=== PATIENT | female | born 1965 | race Caucasian/White ===

== ENCOUNTER → 2020-06-03 12:12 | Outpatient (BNVA) | payer MEDICAID, SELFPAY | PROVIDERS: Family Provider Nurse Practitioner Family; Visit Provider Nurse Practitioner Family | DX: D64.9 Anemia, unspecified (principal); R53.83 Other fatigue; E55.9 Vitamin D deficiency, unspecified; Z79.899 Other long term (current) drug therapy; Z13.6 Encounter for screening for cardiovascular disorders | CPT/HCPCS: 80053; 80061; 81003; 82306; 82607; 83036; 83540; 84425; 84439; 84443; 84481; 85025 ==

== ENCOUNTER → 2020-06-23 08:36 | Outpatient (BNVA) | payer MEDICAID, SELFPAY | PROVIDERS: Family Provider Nurse Practitioner Family; Visit Provider Nurse Practitioner Family | DX: D64.9 Anemia, unspecified (principal); R53.83 Other fatigue; E55.9 Vitamin D deficiency, unspecified; Z79.899 Other long term (current) drug therapy; Z13.6 Encounter for screening for cardiovascular disorders | CPT/HCPCS: 80053; 80061; 82306; 82607; 83036; 83540; 84439; 84443; 84481; 85025 ==

== ENCOUNTER → 2020-12-09 14:13 | Outpatient (BNVA) | payer BC, MEDICAID, SELFPAY | PROVIDERS: Family Provider Nurse Practitioner Family; Visit Provider Obstetrics & Gynecology | DX: Z78.0 Asymptomatic menopausal state (principal) | CPT/HCPCS: 82670; 83001 ==

== ENCOUNTER → 2021-01-06 13:06 | Outpatient (BNVA) | payer BC, MEDICAID, SELFPAY | PROVIDERS: Family Provider Nurse Practitioner Family; Referring Provider Nurse Practitioner Family; Visit Provider Specialist | DX: G56.01 Carpal tunnel syndrome, right upper limb (principal) | CPT/HCPCS: 73110 ==

== ENCOUNTER → 2021-05-05 07:48 | Outpatient (BNVA) | payer BC, MEDICAID, SELFPAY | PROVIDERS: Family Provider Nurse Practitioner Family; Referring Provider Specialist; Visit Provider Specialist | DX: G56.03 Carpal tunnel syndrome, bilateral upper limbs (principal) | CPT/HCPCS: 95886; 95910 ==

== ENCOUNTER 2021-11-20 20:13 | Emergency (ER) | payer BC, MEDICAID, SELFPAY ==
[2021-11-20 20:35] VITALS: BP 161/98; PULSE 84; RESP 16; TEMP 36.6; O2SAT 98; BMI 27.3
--- NOTE | 2021-11-20 21:48 | W.ED.DIZZY ---
HPI - Dizziness General: Chief Complaint: Dizziness Stated Complaint: Vertigo Time Seen by Provider: 11/20/21 21:48 History of Present Illness: HPI Narrative: 56-year-old lady without significant past medical history presenting to the emergency department due to dizziness associated with nausea and vomiting. She reports being at her baseline health when she was sitting on a swing outside. She turned her head to the side and had sudden onset of dizziness which she describes as spinning and unsteady feeling associated with profound nausea and vomiting. Symptoms that were so severe and have mildly improved. She notes worse symptoms with any movement and keeping her eyes open. She has had 1 similar much more mild episode in the past approximately 1 year ago. Otherwise denies neurologic symptoms. No other specific changes in health, exacerbating, or alleviating factors identified. Onset (ago): minute(s) Timing: sudden onset Severity: severe Description: sense of movement, room spinning and difficulty walking Context: change in body position History of similar symptoms: Yes Exacerbating factors: movement/ambulation, change in body position and keeping eyes open Relieving factors: nothing Associated symptoms: Reports nausea and vomiting Review of Systems General: Reports: 10 or more systems reviewed and unremarkable except in HPI and below GI: Reports: nausea and vomiting PFSH ED PFSH: Medical History No pertinent past medical history Denies diabetes, asthma, seizures, DVT/PE PCP: SIVA Ocampo Surgical History Status post LEEP (loop electrosurgical excision procedure) of cervix 2000---LEEP/cone for abnormal Pap smear Status post tubal ligation 1997---laparoscopic tubal ligation performed. Family History Father Diabetes Hypertension Stroke Sister Diabetes Grandmother Diabetes paternal Colon cancer paternal, diagnosed in her 70s Family/Other Breast cancer maternal aunt, diagnosed after age 50 maternal cousin, age at diagnosis unknown Mother Hypertension Hyperlipidemia Thyroid condition Denies family history of Ovarian cancer Heart disease Uterine cancer Social History Smoking and tobacco status: former smoker Physical Exam Const: COMMON NORMALS: patient oriented x3 and alert GENERAL APPEARANCE: cooperative and well developed HENMT: COMMON NORMALS: normocephalic and atraumatic HEAD & SCALP: normocephalic and atraumatic THROAT: posterior oropharynx normal Eye: COMMON NORMALS: Equal, round and reactive pupils present, EOMs intact bilaterally and conjunctivae normal CONJUNCTIVA: Yes conjunctivae normal SCLERA: sclerae normal PUPIL: Yes Equal, round and reactive pupils present EOM: Yes Nystagmus present Nystagmus Noted: positive horizontal and positive with right lateral gaze Neck/C-Spine: COMMON NORMALS: supple GENERAL: Yes trachea midline Resp: COMMON NORMALS: normal respiratory effort and clear to auscultation bilaterally EFFORT & INSPECTION: Yes able to speak in complete sentences AUSCULTATION: clear to auscultation bilaterally Cardio: COMMON NORMALS: regular rate and regular rhythm RATE: regular rate RHYTHM: regular rhythm GI: COMMON NORMALS: Soft to palpation PALPATION: Yes Soft to palpation and No Tenderness to palpation present (GI) PERCUSSION: normal to percussion Extremity: GENERAL: Yes normal exam except as noted and No edema Neuro: COMMON NORMALS: patient oriented x3, CN's II-XII intact bilaterally (see eye), moves all extremities, no focal motor deficits and no sensory deficits noted SENSORIUM/ORIENTATION: Yes alert and No Orientation impaired Psych: COMMON NORMALS: mental status grossly normal and Normal thought process present THOUGHT PROCESS: Normal thought process present Course ED course: - Patient was seen and evaluated by me at bedside - Patient placed on cardiac monitors, IV access obtained - Initial evaluation notable for exam as above - Labs and xrays personally interpreted by me -Fluids, antiemetic, meclizine given - Labs notable for no significant abnormality identified on hematologic or metabolic panel to explain symptoms. - Performed Juliann maneuver with some relief of patient's symptoms which in combination with meclizine significantly improved - Upon serial reexamination after treatment the patient was significantly improved - Based on patient history, evaluation, and testing as interpreted the most likely cause of the patient's condition is peripheral cause of dizziness. I did discuss other potential causes including stroke/central cause of dizziness and offered CT imaging which, given patient's improvement, patient felt comfortable foregoing. - The results of ED evaluation were discussed with the patient including prescriptions and/or symptomatic cares (if applicable) including appropriate and responsible use, followup plan, and return precautions. The patient verbalized understanding and felt safe for discharge. - Patient discharged in satisfactory condition. Note: Click bubbles or prepopulated nugent in note writing are used for assistance with data collection and billing and are inherently more limited than narrative and other text portions of this note. Please use narrative for additional clinical history and defer to narrative/free test for any case of contradictory information. If information appears in only free text or click bubble it should be considered present or absent as reported. Please contact note sheet writer for clarifications of clinical information or contradictory information. MDM is a brief summary, contradictory or erroneous seeming information should be clarified and full note should be reviewed. Vital Signs: Vital signs: Vital Signs Temperature 98.4 F 11/20/21 23:55 Pulse Rate 77 11/20/21 23:55 Respiratory Rate 16 11/20/21 23:55 Blood Pressure 154/102 11/20/21 23:55 Pulse Oximetry 99 11/20/21 23:55 MDM - Dizziness Medical Decision Making 56-year-old lady with history of one-time BPPV presenting with sudden onset dizziness associated with nausea and vomiting associated with head turning. No neurologic abnormalities identified on exam except for nystagmus on far right lateral gaze. Symptoms improved with Juliann and meclizine. Offered imaging which the patient declined. Satisfactory for outpatient management with strict return precautions. Medical Records I reviewed the patient's medical records. Lab Data I reviewed the patient's lab results. : 11/20/21 22:30 11/20/21: Laboratory Results WBC 10.0 10^3/uL (4.0-10.0) 11/20/21: RBC 4.78 10^6/uL (4.1-5.3) 11/20/21 22: Hgb 15.2 g/dL (11.5-15.3) 11/20/21 22: Hct 42.5 % (37.0-47.0) 11/20/21: MCV 88.9 fl (81-99) 11/20/21: MCH 31.8 pg (28.0-34.0) 11/20/21: MCHC 35.8 g/dL (30.0-36.0) 11/20/21: RDW 12.1 % (12.1-15.1) 11/20/21: Plt Count 273 10^3/cmm (130-400) 11/20/21 22:30 MPV 10.7 fL (7.4-10.4) H 11/20/21 22: Neut % (Auto) 83.7 % 11/20/21 22: Lymph % (Auto) 11.2 % 11/20/21: Hand % (Auto) 4.0 % 11/20/21: Eos % (Auto) 0.4 % 11/20/21: Baso % (Auto) 0.3 % 11/20/21: Neut # (Auto) 8.38 10^3/uL (1.8-7.7) H 11/20/21: Lymph # (Auto) 1.1 10^3/uL (0.8-4.8) 11/20/21: Hand # (Auto) 0.4 10^3/uL (0.2-0.9) 11/20/21: Eos # (Auto) 0.0 10^3/uL (0.0-0.8) 11/20/21: Baso # (Auto) 0.0 10^3/uL (0.0-0.1) 11/20/21: Nucleated RBC % (auto) 0 % 11/20/21: Nucleated RBCs # 0.0 /100WBC 11/20/21: Sodium 140 mmol/L (136-145) 11/20/21: Potassium 3.9 mmol/L (3.5-5.1) 11/20/21: Chloride 105 mmol/L (98-107) 11/20/21: Carbon Dioxide 24 mmol/L (22-29) 11/20/21: Anion Gap 14.9 (5-19) 11/20/21: BUN 15 mg/dL (6-20) 11/20/21: Creatinine 0.7 mg/dL (0.5-0.9) 11/20/21 22:30 GFR Calculation 86.2 mL/min (90-130) L 11/20/21: Glucose 124 mg/dL (65-115) H 06/04/22 22:30 Calculated Osmolality 292 mOsm/kg (285-295) 11/20/21 22:30 Calcium 9.4 mg/dL (8.5-10.5) 11/20/21 22:30 Total Bilirubin 0.6 mg/dL (0.15-1.2) 11/20/21 22:30 AST 24 U/L (0-32) 11/20/21 22:30 ALT 31 U/L (0-33) 11/20/21 22:30 Alkaline Phosphatase 68 IU/L (35-105) 11/20/21 22:30 Total Protein 8.0 g/dL (6.6-8.7) 11/20/21 22:30 Albumin 4.8 g/dL (3.5-5.2) 11/20/21: Globulin 3.2 g/dL (1.3-4.6) 11/20/21 22:30 Discharge Plan Discharge Patient Disposition: Home Clinical Impression: Dizziness Condition: Stable Prescriptions: New meclizine 25 mg tablet 25 mg PO TID PRN (Reason: dizziness) Qty: 10 0RF ondansetron 4 mg tablet,disintegrating 4 mg PO Q8H PRN (Reason: nausea and vomiting) Qty: 15 0RF Discharge Orders: Discharge ED (Routine); Ordered 11/20/21 Ordered By: Edvin Santana Discharge Diet: Usual diet Discharge Activity: Increase activity as tolerated Patient Instructions: Benign Paroxysmal Positional Vertigo (ED), Dizziness (ED) Activity Restrictions/Additional Instructions: Thank you for visiting the emergency department. You were seen and evaluated for dizziness. The exact cause of your symptoms is unclear though based on discussion most likely peripheral in nature related to vertigo. I will place a referral for outpatient vestibular therapy, additionally please follow-up with your primary care provider. Please return to the emergency department for any new neurologic symptoms or anything else that you are concerned about and feel needs emergency department evaluation. Coding Level of Care Code ED Insurance Application Investigator for Wesley Puckett
[2021-11-20] MEDS: sodium chloride 0.9% 1,000 ML 999 ML IV (22:32)
[2021-11-20] MEDS: meclizine 25 mg tablet PO ×2 (22:34→23:54)
[2021-11-20] MEDS: ondansetron 2 mg/ML SDV 2 mL 4 MG IVP (22:34)
[2021-11-20 22:45] LABS: Basophils % 0.3 %; Eosinophils % 0.4 %; Hematocrit 42.5 % (37.0-47.0); Hemoglobin 15.2 g/dL (11.5-15.3); Lymphocytes # 1.1 10^3/uL (0.8-4.8); Lymphocytes % 11.2 %; Mean Corpuscular HGB Conc 35.8 g/dL (30.0-36.0); Mean Corpuscular Hemoglobin 31.8 pg (28.0-34.0); Mean Corpuscular Volume 88.9 fl (81-99); Mean Platelet Volume 10.7 fL (7.4-10.4); Monocytes # 0.4 10^3/uL (0.2-0.9); Neutrophils # 8.38 10^3/uL (1.8-7.7); Neutrophils % 83.7 %; Nucleated Red Blood Cells % 0 %; Platelet Count 273 10^3/cmm (130-400); Red Blood Count 4.78 10^6/uL (4.1-5.3); Red Cell Distribution Width 12.1 % (12.1-15.1)
[2021-11-20 23:01] LABS: Alanine Aminotransferase 31 U/L (0-33); Albumin Level 4.8 g/dL (3.5-5.2); Alkaline Phosphatase 68 IU/L (35-105); Anion Gap 14.9 (5-19); Aspartate Amino Transferase 24 U/L (0-32); Blood Urea Nitrogen 15 mg/dL (6-20); Calcium 9.4 mg/dL (8.5-10.5); Carbon Dioxide 24 mmol/L (22-29); Chloride 105 mmol/L (98-107); Globulin 3.2 g/dL (1.3-4.6); Glomerular Filtration Rate 86.2 mL/min (90-130); Glucose 124 mg/dL (65-115); Osmolality Calculated 292 mOsm/kg (285-295); Potassium 3.9 mmol/L (3.5-5.1); Sodium 140 mmol/L (136-145); Total Bilirubin 0.6 mg/dL (0.15-1.2)
[2021-11-20 23:55] VITALS: BP 154/102; PULSE 77; RESP 16; TEMP 36.9; O2SAT 99
--- NOTE | 2021-11-22 14:56 | DCPLANNER ---
Addendum entered by Kyleigh Antoine 11/24/21 08:54: marketing content manager spoke with Kerry at outpatient therapy to confirm that clinic received order for therapy services. marketing content manager was told that clinic did receive order and that clinic will call patient with appointment information. Original Note: marketing content manager had message to schedule a follow up appointment for patient with outpatient therapy. marketing content manager faxed signed order to outpatient therapy services, who will call patient with appointment information.
== END 2021-11-20 23:59 | disposition home or self-care (01) ==
PROVIDERS: Emergency Provider Emergency Medicine
DX: H81.10 Benign paroxysmal vertigo, unspecified ear (principal)
CPT/HCPCS: 80053; 85025; 96361; 96374; 99284; J2405; J7030; J8597

== ENCOUNTER 2021-12-17 | Outpatient (RCR) | payer BC, MEDICAID, SELFPAY | END 2022-01-16 23:59 | disposition home or self-care (01) | LOC: WPT | PROVIDERS: Absent Provider Nurse Practitioner; Family Provider Nurse Practitioner; PCP Nurse Practitioner; Referring Provider Nurse Practitioner; Visit Provider Nurse Practitioner | DX: R42 Dizziness and giddiness (principal) | CPT/HCPCS: 97110; 97140; 97161 ==

== ENCOUNTER → 2022-01-24 13:43 | Outpatient (BNVA) | payer BC, MEDICAID, SELFPAY | PROVIDERS: Family Provider Nurse Practitioner; PCP Nurse Practitioner; Visit Provider Obstetrics & Gynecology | DX: Z12.4 Encounter for screening for malignant neoplasm of cervix (principal) | CPT/HCPCS: 87624 ==

== ENCOUNTER → 2022-05-09 14:42 | Outpatient (BNVA) | payer BC, MEDICAID, SELFPAY | PROVIDERS: Family Provider Nurse Practitioner; PCP Nurse Practitioner; Visit Provider Obstetrics & Gynecology | DX: N84.1 Polyp of cervix uteri (principal) | CPT/HCPCS: 88305; 88342 ==

== ENCOUNTER → 2022-05-19 14:39 | Outpatient (BNVA) | payer BC, MEDICAID, SELFPAY | PROVIDERS: Family Provider Nurse Practitioner; PCP Nurse Practitioner; Visit Provider Obstetrics & Gynecology | DX: R10.2 Pelvic and perineal pain (principal) | CPT/HCPCS: 76830 ==

== ENCOUNTER → 2022-08-11 11:34 | Outpatient (BNVA) | payer BC, MEDICAID, SELFPAY | PROVIDERS: Family Provider Nurse Practitioner; PCP Nurse Practitioner; Visit Provider Nurse Practitioner Family | DX: R10.9 Unspecified abdominal pain (principal); N89.8 Other specified noninflammatory disorders of vagina | CPT/HCPCS: 80053; 85025; 87070; 87205 ==

== ENCOUNTER 2022-09-06 07:33 | Outpatient (CLI) | payer BC, MEDICAID, SELFPAY ==
--- NOTE | 2022-09-06 08:00 | US_ITS ---
WS: [id number] ULTRASOUND ABDOMEN CLINICAL INFORMATION: R10.9 - Unspecified abdominal pain COMPARISON: None. FINDINGS: Liver Size: Normal. Craniocaudal length: 15.1 cm. Echogenicity: Coarse Surface nodularity: None. Mass (size and location): None. Bile ducts Intrahepatic ducts: Normal. Common bile duct diameter: 0.4 cm. Gallbladder Normal. Gallstones: None. Gallbladder sludge: None. Gallbladder wall thickening: None. Pericholecystic fluid: None. Sonographic Baez sign: Absent. Pancreas Normal as visualized. Spleen Splenomegaly: None. Craniocaudal length: 11.5 cm. Right kidney: Mild RIGHT hydronephrosis Hydronephrosis: Mild Size: 10.3 cm x 5.4 cm x 4.8 cm Left kidney: Normal. Hydronephrosis: None. Size: 10.5 cm x 4.3 cm x 5.1 cm. Abdominal aorta and IVC Visualized portions are normal. Ascites: None. US/US abdomen complete* [id number] IMPRESSION: 1. Diffuse fatty infiltration liver. 2. Normal gallbladder. Normal common bile duct. 3. Mild RIGHT hydronephrosis with mild RIGHT hydroureter. This can be further evaluated with renal stone protocol CT to exclude obstruction. 4. No hydronephrosis in the LEFT kidney.
== END 2022-09-06 07:34 | disposition home or self-care (01) ==
LOC: RAD 07:36
PROVIDERS: PCP Nurse Practitioner; Visit Provider Nurse Practitioner Family
DX: R10.9 Unspecified abdominal pain (principal); K76.0 Fatty (change of) liver, not elsewhere classified; N13.30 Unspecified hydronephrosis
CPT/HCPCS: 76700

== ENCOUNTER 2022-09-06 09:00 | Outpatient (CLI) | payer BC, MEDICAID, SELFPAY | END 2022-09-06 09:01 | disposition home or self-care (01) | LOC: SLEEP 09-07 17:06 | PROVIDERS: PCP Nurse Practitioner; Visit Provider Nurse Practitioner Family | DX: G47.30 Sleep apnea, unspecified (principal) | CPT/HCPCS: 94762 ==

== ENCOUNTER 2022-09-30 10:12 | Outpatient (CLI) | payer BC, MEDICAID, SELFPAY ==
--- NOTE | 2022-09-30 10:30 | CT_ITS ---
WS: [id number] CT ABDOMEN AND PELVIS NONCONTRAST HISTORY: R10.9 - Unspecified abdominal pain, upper abdominal pain radiating into back. TECHNIQUE: Imaging performed through the abdomen and pelvis. Coronal and sagittal reformats are submi tted. All CT scans at [facility] use at least one of these dose optimization techniques: auto mated exposure control; mA and/or kV adjustment per patient size (includes targeted exams where dose is matched to clinical indication); or iterative reconstruction. DLP: 335.53 mGy.cm COMPARISON: None available. Lower thorax: Lung bases are clear. Visualized heart is normal. No hiatal hernia. Liver: Mild hepatomegaly and hepatic steatosis. No bile duct dilatation or mass. Gallbladder: Normal gallbladder. Pancreas: Normal size and attenuation. Normal pancreatic duct. No pancreatitis or mass. Spleen: Normal. Adrenal glands: Normal. No mass. Right kidney: Minimal prominence of the renal pelvis is probably an extrarenal pelvis. No hydronephro sis. Left kidney: Normal size kidney with no mass or hydronephrosis. Aorta: Mild atherosclerosis abdominal aorta with no aneurysm. No free fluid, intraperitoneal air or significant lymphadenopathy. GI tract: Normal noncontrast imaging of the stomach, small bowel and colon. No obstruction or wall th ickening. Normal appendix. Abdominal wall: Small umbilical hernia contains fat only. Pelvis: Well-distended urinary bladder. There is significant known uterine prolapse. Osseous structures: Unremarkable. CT/CT abdomen pelvis wo con [id number] IMPRESSION: 1. No acute abdominal or pelvic abnormalities. 2. Hepatic steatosis and hepatomegaly, mild. 3. No hydronephrosis. Small RIGHT extrarenal pelvis. 4. Known uterine prolapse.
== END 2022-09-30 10:13 | disposition home or self-care (01) ==
LOC: RAD 10:16
PROVIDERS: PCP Nurse Practitioner Family; Visit Provider Nurse Practitioner Family
DX: R10.9 Unspecified abdominal pain (principal); R16.0 Hepatomegaly, not elsewhere classified
CPT/HCPCS: 74176

== ENCOUNTER 2022-11-10 12:07 | Observation (INO) | payer BC, MEDICAID, SELFPAY ==
[2022-11-08 11:58] VITALS: BMI 28.3
[2022-11-08 13:09] LABS: Add Urine Microscopic? NO; Charge for UA Resulting for Rev
[2022-11-08 13:13] LABS: Basophils % 0.5 %; Eosinophils # 0.3 10^3/uL (0.0-0.8); Eosinophils % 4.9 %; Hematocrit 44.6 % (37.0-47.0); Hemoglobin 15.3 g/dL (11.5-15.3); Lymphocytes # 1.7 10^3/uL (0.8-4.8); Lymphocytes % 31.1 %; Mean Corpuscular HGB Conc 34.3 g/dL (30.0-36.0); Mean Corpuscular Hemoglobin 31.2 pg (28.0-34.0); Monocytes # 0.4 10^3/uL (0.2-0.9); Monocytes % 7.7 %; Neutrophils # 3.08 10^3/uL (1.8-7.7); Neutrophils % 55.4 %; Nucleated Red Blood Cells % 0 %; Platelet Count 285 10^3/cmm (130-400); Red Cell Distribution Width 12.2 % (12.1-15.1); White Blood Count 5.6 10^3/uL (4.0-10.0)
[2022-11-08 13:24] LABS: Bilirubin Urine Neg (Negative); Blood Urine Neg (Negative); Glucose Urine UA Norm (Normal); Ketones Urine 1+ (Negative); Leukocyte Esterase Urine Negative (Negative); Nitrate Urine Negative (Negative); Protein Urine Neg (Negative); Urine Appearance Clear (CLEAR); Urine Color Yellow (Yellow); Urobilinogen Urine Norm (Negative); pH Urine 6 (5-7)
[2022-11-08 13:31] LABS: Alanine Aminotransferase 34 U/L (0-33); Albumin Level 4.9 g/dL (3.5-5.2); Alkaline Phosphatase 66 U/L (35-105); Anion Gap 15.1 (5-19); Aspartate Amino Transferase 29 U/L (0-32); Blood Urea Nitrogen 12 mg/dL (6-20); Calcium 9.1 mg/dL (8.5-10.5); Carbon Dioxide 27 mmol/L (22-29); Chloride 102 mmol/L (98-107); Globulin 2.9 g/dL (1.3-4.6); Glomerular Filtration Rate 85.9 mL/min (90-130); Glucose 81 mg/dL (65-115); Osmolality Calculated 289 mOsm/kg (285-295); Potassium 4.1 mmol/L (3.5-5.1); Sodium 140 mmol/L (136-145); Total Bilirubin 0.7 mg/dL (0.15-1.2); Total Protein 7.8 g/dL (6.6-8.7)
--- NOTE | 2022-11-08 16:26 | ANES.PREANE2 ---
Pre-Anesthetic Assessment Height/Weight: Height 1.52 m Weight 65.771 kg Operation Date: 11/10/22 08:00 Proposed Procedures p Total vaginal hysterectomy 06101, Anterior and posterior colporrhaphy 01845, Single incision sling 54283, Sacrospinous fixation 54153,N81.3(Not Applicable) - Ciro Ashraf MD s Anterior Repair Anterior Colporrhaphy(Not Applicable) - Ciro Ashraf MD s Posterior Repair Posterior Colporrhaphy(Not Applicable) - Ciro Ashraf MD s Sling Single Incision Sling(Not Applicable) - Ciro Ashraf MD s Sacrospinous Ligament Suspension(Not Applicable) - Ciro Ashraf MD Familial anesthetic complications: none Was Beta Dulce Maria taken within 24 hours: N/A Was Clonidine taken within 24 hours: N/A Social No alcohol and No tobacco Exam alert, oriented x 3, clear to auscultation bilaterally and regular rate & rhythm Airway Submandibular: within normal limits Cervical ROM: within normal limits Mallampati: Class II Dentition: full Pulmonary Sleep Apnea Anesthetic Plan ASA status: 2 Anesthesia: General Medications/Allergies Home Medications Medication Instructions Recorded Confirmed Last Taken Type No Known Home Medications 05/09/22 11/08/22 Unknown History Allergies Allergy/AdvReac Type Severity Reaction Status Date / Time No Known Allergies Allergy Verified 11/08/22 08:45 [facility] Anesthesia Medical History No pertinent past medical history Denies diabetes, asthma, seizures, DVT/PE PCP: SIVA Ocampo Surgical History Status post LEEP (loop electrosurgical excision procedure) of cervix 2000---LEEP/cone for abnormal Pap smear Status post tubal ligation 1997---laparoscopic tubal ligation performed. Family History Father Diabetes Hypertension Stroke Sister Diabetes Grandmother Diabetes paternal Colon cancer paternal, diagnosed in her 70s Family/Other Breast cancer maternal aunt, diagnosed after age 50 maternal cousin, age at diagnosis unknown Mother Hypertension Hyperlipidemia Thyroid condition Denies family history of Ovarian cancer Heart disease Uterine cancer Social History Smoking and tobacco status: former smoker Alcohol intake: never Substance/Drug Use: never Adopted: No Lives independently: Yes Household members: spouse Data Anesthesia 11/08/22 12:00 11/08/22 12:00 Short CBC 11/08/22 Range/Units 12:00 WBC 5.6 (4.0-10.0) 10^3/uL Hgb 15.3 (11.5-15.3) g/dL Hct 44.6 (37.0-47.0) % MCV 91.0 (81-99) fl Plt Count 285 (130-400) 10^3/cmm Neut % (Auto) 55.4 % Neut # (Auto) 3.08 (1.8-7.7) 10^3/uL BMP 11/08/22 12:00 Sodium 140 Potassium 4.1 Chloride 102 Carbon Dioxide 27 BUN 12 Creatinine 0.7 Glucose 81 Calcium 9.1 Liver Function 11/08/22 Range/Units 12:00 Total Bilirubin 0.7 (0.15-1.2) mg/dL AST 29 (0-32) U/L ALT 34 H (0-33) U/L Alkaline Phosphatase 66 (35-105) U/L Albumin 4.9 (3.5-5.2) g/dL Urine 11/08/22 Range/Units 12:05 Urine Color Yellow (Yellow) Urine Appearance Clear (CLEAR) Urine pH 6 (5-7) Ur Specific [place] 1.010 (1.005-1.030) Urine Protein Neg (Negative) Urine Glucose (UA) Norm (Normal) Urine Ketones 1+ H (Negative) Urine Nitrate Negative (Negative) Urine Bilirubin Neg (Negative) Ur Leukocyte Esterase Negative (Negative) Blood Bank 11/08/22 12:00 Blood Type O Positive Rho(D) Type Positive Antibody Screen Negative Cardiac Studies: No Data to Display
[2022-11-10] VITALS (17 sets, daily range): BP systolic 103–146; BP diastolic 69–94; PULSE 68–101; RESP 15–18; TEMP 36.1–36.8; O2SAT 91–99; BMI 12.2
[2022-11-10] MEDS: scopolamine 1.5 Patch 1 PATCH TRANSDERMA (07:20)
[2022-11-10] MEDS: sodium chloride 0.9% 1,000 ML 30 ML IV (07:21)
[2022-11-10] MEDS: sodium chloride 0.9% 500 ML IV (07:22)
[2022-11-10 07:36] LABS: OR HCG Qualitative Urine Negative (Negative)
--- NOTE | 2022-11-10 08:04 | W.PM.OPSUD ---
Surgery/Procedure H&P Update DATE OF PROCEDURE: November 10, 2022 DATE H&P PERFORMED: 11/08/22 H&P UPDATE INFORMATION: I have reviewed H&P completed within last 30 days, I have examined patient prior to procedure and No changes to prior documentation PREOP DIAGNOSIS: Uterine prolapse, endometrial polyp PLANNED PROCEDURE: Operation Date: 11/10/22 08:00 Proposed Procedures p Total vaginal hysterectomy 41061, Anterior and posterior colporrhaphy 70023, Single incision sling 52622, Sacrospinous fixation 61498,N81.3(Not Applicable) - Ciro Ashraf MD s Anterior Repair Anterior Colporrhaphy(Not Applicable) - Ciro Ashraf MD s Posterior Repair Posterior Colporrhaphy(Not Applicable) - Ciro Ashraf MD s Sling Single Incision Sling(Not Applicable) - Ciro Ashraf MD s Sacrospinous Ligament Suspension(Not Applicable) - Ciro Ashraf MD
[2022-11-10] MEDS: ceFAZolin 2,000 MG in sodium chloride 0.9% (plus) 50 ML 100 MG IV (08:13)
--- NOTE | 2022-11-10 10:33 | P.ANESUD_ITS ---
Pre-Anesthetic Update Pre-Anesthetic Assessment: Date of Surgery/Procedure: 11/10/22 Preop Mercedes gnosis: Uterine prolapse, endometrial polyp Proposed Procedure: Operation Date: 11/10/22 08:00 Proposed Procedures p Total vaginal hysterectomy 40081, Anterior and posterior colporrhaphy 55087, Single incision sling 01831, Sacrospinous fixation 34325,N81.3(Not Applicable) - Ciro Ashraf MD s Anterior Repair Anterior Colporrhaphy(Not Applicable) - Ciro Ashraf MD s Posterior Repair Posterior Colporrhaphy(Not Applicable) - Ciro Ashraf MD s Sling Single Incision Sling(Not Applicable) - Ciro Ashraf MD s Sacrospinous Ligament Suspension(Not Applicable) - Ciro Ashraf MD Any changes to Pre-Anesthetic Assessment?: No Last Intake: Intake Last Liquid Date 11/09/22 Last Liquid Time 23:00 Last Solid Date 11/09/22 Last Solid Time 19:00 Labs Last 48hrs: Short CBC 11/08/22 Range/Units 12:00 WBC 5.6 (4.0-10.0) 10^3/ uL Hgb 15.3 (11.5-15.3) g/dL Hct 44.6 (37.0-47.0) % MCV 91.0 (81-99) fl Plt Count 285 (130-400) 10^3/c mm Neut % (Auto) 55.4 % Neut # (Auto) 3.08 (1.8-7.7) 10^3/u L BMP 11/08/22 12:00 Sodium 140 Potassium 4.1 Chloride 102 Carbon Dioxide 27 BUN 12 Creatinine 0.7 Glucose 81 Calcium 9.1 Liver Function 11/08/22 Range/Units 12:00 Total Bilirubin 0.7 (0.15-1.2) mg/dL AST 29 (0-32) U/L ALT 34 H (0-33) U/L Alkaline Phosphata se 66 (35-105) U/L Albumin 4.9 (3.5-5.2) g/dL Urine 11/08/22 Range/Units 12:05 Urine Color Yellow (Yellow) Urine Appearance Clear (CLEAR) Urine pH 6 (5-7) Ur Specific [place]it y 1.010 (1.005-1.030) Urine Protein Neg (Negative) Urine Glucose (UA) Norm (Normal) Urine Ketones 1+ H (Negative) Urine Nitrate Negative (Negative) Urine Bilirubin Neg (Negative) Ur Leukocyte Elsa ase Negative (Negative) Blood Bank 11/08/22 12:00 Blood Type O Positive Rho(D) Type Positive Antibody Screen Negative Vitals: Temperature 97 F L 11/10/22 07:10 Temperature Source Temporal Artery S can 11/10/22 07:10 Pulse Rate 84 11/10/22 07:10 Pulse Rhythm Regular 11/10/22 07:10 Pulse Strength 3+ Normal 11/10/22 07:10 Respiratory Rate 18 11/10/22 07:10 Blood Pressure 146/94 11/10/22 07:10 Blood Pressure Jazmine n 111 11/10/22 07:10 Pulse Oximetry 97 11/10/22 07:10 Oxygen Delivery Me thod Room Air 11/10/22 07:10 Exam: Pre-Anes Outpt Exam: alert, oriented x 3, clear to auscultation bilaterally and regular rate & rhythm Cardiac Studies: No Data to Display
--- NOTE | 2022-11-10 11:26 | SUR.OPER ---
112 UPDATED FAMILY BY CALL
[2022-11-10] MEDS: lidocaine-epi 2% 20 mL INJ 10 ML INJECTION (11:27)
[2022-11-10] MEDS: estrogens Conjugated Cream 30 gm 1 APPLIC VAGINAL (11:38)
--- NOTE | 2022-11-10 12:03 | P.OP_ITS ---
Operative Report Date of procedure: November 10, 2022 Pre-op diagnosis: Preop Diagnosis Uterine prolapse, endometrial polyp Post-op diagnosis: Complete uterine prolapse. Endometrial plan Procedure done: Total vaginal hysterectomy with bilateral salpingo-oophorectomy. Anterior colporrhaphy augmented with allograft. Single incision mid urethral sling. Posterior colporrhaphy. Sacrospinous fixation. Cystoscopy. Implants: Coloplast Altis sling Specimens removed/disposition: Uterus Left and right fallopian tubes and ovary Surgeon: Ciro Ashraf MD Estimated blood loss (mL): 200 IV fluids (mL): 1,500 Urine output (mL): 700 Procedure: After informed consent, the patient was taken to the operating room where general anesthesia was administered. She was placed in the dorsal lithotomy position and prepped and draped in sterile fashion. Pre-Procedure Time-Out verifying the correct patient identity, correct procedure verified with consent, correct site and side, correct patient position, availability of correct implants and any special equipment or requirements was performed and acknowledge by the OR team. A weighted speculum was placed in the posterior vaginal wall and the right-angle retractor used to visualize the cervix. The cervix was grasped across the anterior lip with a single-toothed tenaculum and circumferentially infiltrated with 1% Xylocaine with epinephrine at this time. The cervix was circumferentially excised with the scalpel. The vaginal mucosa was dissected superiorly with sharp dissection. The anterior peritoneal reflection was identified, and it was entered with Metzenbaum scissors. A posterior colpotomy was made through the cul-de-sac space. The posterior peritoneum was identified in similar fashion and Metzenbaum scissors were used to enter the cul-de-sac. At this time, a weighted speculum was placed, advanced posteriorly into the cul-de-sac. At this time, the left and right uterosacral ligaments were isolated and ligated with 0 Vicryl. The LigaSure device was then used in a serial fashion up through the cardinal ligaments bilaterally. Finally, the uterine arteries were cross-clamped, cut, and ligated with the LigaSure device. LigaSure device was then used up through the broad ligaments superiorly and finally the uterus was rotated posteriorly. The left and right tubes were then cross-clamped and ligated with LigaSure device. The uterus was excised and submitted for pathologic evaluation. No other abnormalities were noted in the pelvic cavity. Tag sutures had been left on the remnants of the uterosacral ligaments. The right uterosacral ligament tag was placed under traction to identify the remnants of the right uterosacral ligament. A #0 PDS suture was placed to the proximal right uterosacral ligament and sutured to the anterior and posterior pelvic fascia beneath the vaginal cuff on the right side. Identical process was performed on the left, although some difficulty was encountered in identifying and actually suturing through the attenuated left uterosacral ligament. Both these sutures were tied to elevate the vaginal cuff. The remaining vaginal cuff mucosa and anterior and posterior fascia were then closed. At this time, instruments were removed from the patient's abdominopelvic cavity. Vaginal cuff closure and peritoneum were incorporated into one layer with 0 Vicryl suture in a continuous running interlocking fashion. Hemostasis was noted to be achieved. Then an anterior colporrhaphy was performed. The vaginal mucosa was then injected in the midline with normal saline. The vaginal mucosa was then injected in the midline with normal saline. The vaginal mucosa was scored in the midline with the Bovie approximately 1 cm medial to the urethral meatus to 1 cm distal to the vaginal cuff. This vaginal mucosa was then undermined and then incised in the midline with the Metzenbaum scissors. The lateral aspects of the vaginal mucosa were then grasped with the Allis clamps and the vaginal mucosa was then dissected off the underlying fascia with the Metzenbaum scissors. Again, there was noted to be quite a bit of oozing at the incision, which was controlled with cautery. After adequate dissection was performed, bilaterally. A Coloplast allograft was modified at time of application to fit spacea, 3 x 4 cm piece . The allograft was placed in front of cystocele ready to be implanted facing the vagina mucosa. Suture is placed at distal end of graft and placed towards vaginal cuff. Final suture is placed on proximal portion of the graft to complete the placement overlying the bladder. Then Interrupted vertical mattress sutures of 0 Vicryl were used to elevate the cystocele superiorly. The excessive vaginal mucosa was then trimmed with the Metzenbaum scissors and the vaginal mucosa was then reapproximated in the running interlocking fashion with 2-0 Vicryl. Then proceeded to perform the single incision mid urethral sling. A vertical midline incision was made beneath the midurethra, nearly 1.5 cm angely [facility]. Careful submucosal dissection was performed bilaterally up to the interior portion of the inferior pubic ramus. The insertion of adductor longus tendon on the patient?s pubic ramus was identified as reference land pauline. Palpated the notch along the internal edge of ischiopubic ramus where the adductor longus tendon and the inferior pubic ramus meet. The Altis single incision sling (SIS) was selected. Then the needle of the SIS inserted aiming at the location of this notch. One of the integrated self-fixating tips place onto the needle by sliding it over the end of the needle. The needle/sling assembly was inserted toward the location of identified reference notch making sure that the flat of the handle is perpendicular to the desired path. The needle was tracked along the posterior surface of the ischiopubic ramus until the midline pauline on the mesh is approximately at the midline position under the urethra. The needle was removed and the same was repeated on the contralateral side until the appropriate sling tension under the urethra was achieved ensuring that the mesh lays flat. The needle was removed and vaginal incision was closed in a running interlocking fashion with 2-0 Vicryl. Then proceeded to perform the posterior colporrhaphy and sacrospinous fixation. he posterior vaginal mucosa is opened in the routine fashion as described previously in Posterior Repair. A finger is inserted through the incision in the posterior vaginal mucosa, dissecting out the rectovaginal space (RVS). The right rectal pillar (RRP) is identified. The rectal pillar can be bluntly perforated either with the finger or with the tip of a long Dasha clamp. A Breisky-Navratil retractor is used for exposing the rectovaginal space in order to enter the pararectal space with retraction of the cardinal ligament, vagina, and rectum. Displacing the rectum to the left and the cardinal ligament and ureter anteriorly. A sponge dissector is used to bluntly dissect the sacrospinous ligament removing areolar tissue. The ischial spine was palpated directly, and a area approximately 2 cm medial to the spine was selected for insertion of the Anchorsure transvaginal sacrospinous fixation system. One end of the suture of Anchoresure system inserted through the sacrospinous ligament is placed through the muscular layer of the vagina. In a similar manner, the second suture is placed. The opposite end of the suture in the sacrospinous ligament is left free and held on a small hemostat. Then traction on this suture will draw the vaginal vault directly to the ligament, where a square knot affixes it to the sacrospinous ligament. After the ena stich is tied the second safety stich is tied. Then the posterior colporrhaphy was completed. 2% lidocaine with epinephrine solution was infiltrated under the posterior vaginal mucosa midline and into the perineal body. An inverted triangle/milagros of skin / transverse incision was cut in the perineum. The posterior vaginal wall was opened vertically and midline up to the apex of the rectocele. The cut edges were held and splayed laterally with a series of Allis clamps. The open vaginal mucosa was then dissected laterally with a combination of sharp and blunt dissection, exposing the perirectal fascia. The perirectal fascia was then reapproximated with interrupted #2-0 Vicryl sutures to draw the lateral folds together and tuck the rectocele back. Deep interrupted sutures of #0 Vicryl were used to reapproximate the fibers of the levator ani muscles. The excess vaginal mucosa was trimmed. The posterior vaginal wall was closed with a running locked #0 Vicryl to the hymenal tags. The superficial perineal muscles were closed with running unlocked #0 Vicryl and the perineal skin was closed with running subcuticular #2-0 Vicryl. Then the Barron catheter was removed and cystoscope was inserted. The bladder was filled with sterile water. Complete evaluation of the bladder mucosa was performed noting no lacerations, dimpling, tears, bleeding of the mucosa or muscular layers. Both ureteral orifices were identified. Prompt excretion of urine from both ureteral orifices was noted. Cystoscope was withdrawn. Barron catheter was then placed yielding clear lorenzo urine. A vaginal packing with Premarin cream was placed to provide support during the healing process. The patient tolerated the procedure well and was taken to the recovery room in a stable condition. Sponge and needle counts were correct x3.
[2022-11-10] MEDS: dextrose 5%-lactated ringers 1,000 ML 125 ML IV ×2 (13:38→21:44)
[2022-11-10] MEDS: ketorolac 30 mg/mL INJ IVP ×2 (13:38→18:20)
--- NOTE | 2022-11-10 16:54 | ANE.PACU2 ---
Inpatient post-anesthesia follow up: Airway intact: Yes Vital signs: Temperature 98.2 F Pulse Rate 86 Respiratory Rate 15 Blood Pressure 139/89 Pulse Oximetry 95 Oxygen Delivery Me thod Room Air Oxygen Flow Rate 8 Fraction of Inspir ed Oxygen Hydration adequate: Yes Nausea and vomiting: No Pain level: 4 Mental status: Baseline
[2022-11-10] MEDS: docusate sodium 100 mg Capsule PO (18:25)
--- NOTE | 2022-11-10 18:34 | PC.NURSE ---
pt sat to side of bed and then stood at bedside. she began to feel dizzy, so we stood at the bedside for 5 minutes then back to bed. chux changed, had small amount of bright red bleeding
[2022-11-10] MEDS: acetaminophen 325 mg Tablet 650 MG PO (23:10)
[2022-11-11] VITALS: BP 125/81; PULSE 87; RESP 16; TEMP 36.7; O2SAT 95
[2022-11-11] MEDS: ketorolac 30 mg/mL INJ IVP (03:18)
[2022-11-11 04:00] VITALS: BP 118/73; PULSE 60; RESP 18; TEMP 36.6
[2022-11-11 05:23] LABS: Hematocrit 34.7 % (37.0-47.0); Hemoglobin 11.8 g/dL (11.5-15.3); Mean Corpuscular Hemoglobin 31.4 pg (28.0-34.0); Mean Corpuscular Volume 92.3 fl (81-99); Mean Platelet Volume 10.7 fL (7.4-10.4); Platelet Count 222 10^3/cmm (130-400); Red Blood Count 3.76 10^6/uL (4.1-5.3); Red Cell Distribution Width 12.4 % (12.1-15.1); White Blood Count 13.5 10^3/uL (4.0-10.0)
--- NOTE | 2022-11-11 06:40 | PC.NURSE ---
[facility] with [facility]FA. Pt stated pain was 8/10 in lower back but refused any type of pain medication. Advised pt to continue to walk around floor as tolerated and increase water intake until first void.
[2022-11-11] MEDS: acetaminophen 325 mg Tablet 650 MG PO ×2 (07:39→15:09)
[2022-11-11] MEDS: ibuprofen 800 mg tablet PO ×2 (10:48→17:22)
[2022-11-11] MEDS: docusate sodium 100 mg Capsule PO ×2 (10:48→17:22)
--- NOTE | 2022-11-11 12:36 | PM.OBGYDC ---
Discharge Providers SALON COORDINATOR Date of Admission: 11/10/22 12:07 Date of Discharge: 11/17/22 Attending Provider at Admission: Ciro Ashraf MD Attending Provider at Discharge: Ciro Ashraf MD Primary Care Provider: SIVA Adkins Reason for Visit Reason for Visit: [id number]; N81.3 Hospital Course Hospital Course Mrs. Frank 57-year-old female with a total uterine prolapse. Admitted for planned total vaginal hysterectomy with bilateral salpingo-oophorectomy, anterior colporrhaphy augmented with allograft, single incision mid urethral sling, posterior colporrhaphy, and sacrospinous fixation. Procedures were performed without complication. Overnight observation uneventful. She is afebrile hemodynamically stable postoperative day 1. Tolerating diet well. Ambulating without difficulty. Patient was counseled regarding pelvic rest for 6 weeks (no sex, no tampons, no vaginal douches). Return to the emergency room if any fever, increased bleeding or pain. Physical Exam Narrative: GA: Alert and oriented ?3. HEENT: WNL. Heart: Regular rate and rhythm. Lungs: Clear to auscultation bilaterally. Abdomen: Bowel sounds present, nontender. [employer]: scan bleeding. Extremities: No edema, no cyanosis, no calves pain. Urinary Catheter Management: Murrell: Cath Placed During This Visit: yes, but has since been removed by the nurse Reason for Continuing Indwelling Catheter: Decision to DC Catheter Urinary Catheter Date of Insertion: 11/10/22 Urinary Catheter Time of Insertion: 08:45 Date Urinary Catheter Removed: 11/11/22 Time Urinary Catheter Discontinued: 05:23 History History History 2 Term 2 0 Miscarriages/Ectopic 0 Living Children 2 Discharge Data Studies Completed and Pending Pending at discharge Category Date Time Status Pathology: Surgical [PTH] Routine Pth 11/10/22 10:07 Received Laboratory Results WBC 13.5 10^3/uL (4.0-10.0) H 11/11/22 05:15 RBC 3.76 10^6/uL (4.1-5.3) L 11/11/22 05:15 Hgb 11.8 g/dL (11.5-15.3) 11/11/22 05:15 Hct 34.7 % (37.0-47.0) L 11/11/22 05:15 MCV 92.3 fl (81-99) 11/11/22 05:15 MCH 31.4 pg (28.0-34.0) 11/11/22 05:15 MCHC 34.0 g/dL (30.0-36.0) 11/11/22 05:15 RDW 12.4 % (12.1-15.1) 11/11/22 05:15 Plt Count 222 10^3/cmm (130-400) 11/11/22 05:15 MPV 10.7 fL (7.4-10.4) H 11/11/22 05:15 Neut % (Auto) 55.4 % 11/08/22 12:00 Lymph % (Auto) 31.1 % 11/08/22 12:00 Waller % (Auto) 7.7 % 11/08/22 12:00 Eos % (Auto) 4.9 % 11/08/22 12:00 Baso % (Auto) 0.5 % 11/08/22 12:00 Neut # (Auto) 3.08 10^3/uL (1.8-7.7) 11/08/22 12:00 Lymph # (Auto) 1.7 10^3/uL (0.8-4.8) 11/08/22 12:00 Waller # (Auto) 0.4 10^3/uL (0.2-0.9) 11/08/22 12:00 Eos # (Auto) 0.3 10^3/uL (0.0-0.8) 11/08/22 12:00 Baso # (Auto) 0.0 10^3/uL (0.0-0.1) 11/08/22 12:00 Nucleated RBC % (auto) 0 % 11/08/22 12:00 Nucleated RBCs # 0.0 /100WBC 11/08/22 12:00 Sodium 140 mmol/L (136-145) 11/08/22 12:00 Potassium 4.1 mmol/L (3.5-5.1) 11/08/22 12:00 Chloride 102 mmol/L (98-107) 11/08/22 12:00 Carbon Dioxide 27 mmol/L (22-29) 11/08/22 12:00 Anion Gap 15.1 (5-19) 11/08/22 12:00 BUN 12 mg/dL (6-20) 11/08/22 12:00 Creatinine 0.7 mg/dL (0.5-0.9) 11/08/22 12:00 GFR Calculation 85.9 mL/min (90-130) L 11/08/22 12:00 Glucose 81 mg/dL (65-115) 11/08/22 12:00 Calculated Osmolality 289 mOsm/kg (285-295) 11/08/22 12:00 Calcium 9.1 mg/dL (8.5-10.5) 11/08/22 12:00 Total Bilirubin 0.7 mg/dL (0.15-1.2) 11/08/22 12:00 AST 29 U/L (0-32) 11/08/22 12:00 ALT 34 U/L (0-33) H 11/08/22 12:00 Alkaline Phosphatase 66 U/L (35-105) 11/08/22 12:00 Total Protein 7.8 g/dL (6.6-8.7) 11/08/22 12:00 Albumin 4.9 g/dL (3.5-5.2) 11/08/22 12:00 Globulin 2.9 g/dL (1.3-4.6) 11/08/22 12:00 Urine Color Yellow (Yellow) 11/08/22 12:05 Urine Appearance Clear (CLEAR) 11/08/22 12:05 Urine pH 6 (5-7) 11/08/22 12:05 Ur Specific Conception 1.010 (1.005-1.030) 11/08/22 12:05 Urine Protein Neg (Negative) 11/08/22 12:05 Urine Glucose (UA) Norm (Normal) 11/08/22 12:05 Urine Ketones 1+ (Negative) H 11/08/22 12:05 Urine Blood Neg (Negative) 11/08/22 12:05 Urine Nitrate Negative (Negative) 11/08/22 12:05 Urine Bilirubin Neg (Negative) 11/08/22 12:05 Urine Urobilinogen Norm mg/dL (Negative) 11/08/22 12:05 Ur Leukocyte Esterase Negative (Negative) 11/08/22 12:05 Urine HCG, Qual Negative (Negative) 11/10/22 07:35 Blood Type O Positive 11/08/22 12:00 Rho(D) Type Positive 11/08/22 12:00 Antibody Screen Negative 11/08/22 12:00 Vitals Last Vital Signs Temp 97.9 F 11/11/22 04:00 Pulse 60 11/11/22 04:00 Resp 18 11/11/22 04:00 BP 118/73 11/11/22 04:00 Pulse Ox 95 11/11/22 00:00 O2 Del Method Room Air 11/11/22 04:00 O2 Flow Rate 8 11/10/22 12:23 Discharge Plan Discharge Patient Disposition: Home Condition: Stable Prescriptions: New ibuprofen 800 mg tablet 800 mg PO TID PRN (Reason: pain) Qty: 60 0RF hydrocodone-acetaminophen 5-325 mg tablet 1 tab PO Q4H PRN (Reason: pain) Qty: 10 0RF acetaminophen 325 mg capsule 325 mg PO Q4H PRN (Reason: fever or pain) Qty: 60 0RF Discharge Orders: Discharge Order (Routine); Ordered 11/11/22 Ordered By: Ciro Ashraf Referrals: Ciro Ashraf MD [Physician] - 11/15/22 2:30 pm ( You have an appt on November 15 at 2:30pm for the murrell catheter removal You have your 2 week follow up with Dr Ashraf on November 25 at 10:00am You have your 6 week follow up with Dr Ashraf on December 23 at 1:30pm ) Discharge Diet: GI Soft and Soft Mechanical Discharge Activity: Limit activity as instructed Patient Instructions: Acetaminophen (By mouth) (Acetaminophen Children's, Acetaminophen..., Hydrocodone/Acetaminophen (By mouth) (Vicodin, Elfrida, Lortab), Ibuprofen (By mouth) (Advil, Advil Children's, Motrin, Children's..., Laxative, Stool Softeners (By mouth) (Doculax, Colace, Colace Clear, DSS), Murrell Catheter Care, Bladder Sling for Women (GEN), Vaginal Hysterectomy (DC), Anterior Vaginal Repair (DC), Posterior Vaginal Repair (DC), OB Discharge Report, OB Food/Drug Interaction Guide, Opioid Safety Activity Restrictions/Additional Instructions: 1. Please call [facility] on next working day to make your post-operative appointment in 2 weeks. 2. Please stay home until you come back to the clinic on first post-hospatilization check up. 3. Please follow instructions on your medications CAREFULLY. 4. If you have abdominal incision, do not cover it unless dressing is necessary because of drainage. OK to shower, but avoid bath. Leave steri-strips until they fall off. If they are still on one week after surgery, you may remove them. 5. If you had vaginal surgery or vaginal repair, Dr. Asharf may instruct you to take SITZ bath. 6. Yellow, blood tinged odorous vaginal discharge is usually normal after hysterectomy or vaginal surgeries. 7. No SEXUAL INTERCOURSE, tampons, or douches until you are completely released from the post-operative care. 8. Avoid constipation by eating right and maybe using some Metamucil or Milk of Magnesia. 9. All prescription refills are given during the working hours. Please do no wait till it runs out. Call the clinic at [phone] before your medication runs out. The clinic will get in touch with your doctor to prescribe medications if necessary. 10. Please remain within 40 mile radius from our hospital because emergencies do happen now and then during the post-operative period. 11. If you have stairs at home, take one step at a time slowly and minimize the number of trips. It helps to stay in one floor for the next few days. No lifting except what you can lift by one hand until you are released from the post-operative care. 12. Driving is discouraged until you are well healed. It may be 3-4 weeks before you feel strong enough to drive. You should be able to turn and look through the rear window without pain and you should be able to push the brake pedal very hard without pain before you drive. No fast rules, but SAFETY should be your primary concern. DO NOT drive if you are on sedating medications such as narcotics. 13. Call the clinic (during working hours) to make urgent appointment or go to the Emergency room, if any of the following occurs: i. Vaginal bleeding becomes heavy, more than a period. ii. Incision becomes red and sore, or drains pus. iii. Your TEMPERATURE is over 100.4F or you have chill. iv. IV site becomes red and swollen (a little ``knot?? is usually OK) v. Persistent nausea and vomiting vi. Persistent constipation or diarrhea vii. Rash or allergic reaction to medications. Discharge Attestations SALON COORDINATOR Time Spent in Discharge Care*: greater than 30 min Coding Level of Care Code Acute Code for Chg Fwd Diagnoses
[2022-11-11 15:15] VITALS: BP 118/62; PULSE 70; RESP 16; TEMP 36.8; O2SAT 96
[2022-11-11 17:20] VITALS: BP 118/62; PULSE 70; RESP 16; TEMP 36.8; O2SAT 96
== END 2022-11-11 17:45 | disposition home or self-care (01) ==
LOC: OBGYN 12:08
PROVIDERS: Anesthesiology; Admitting Provider Obstetrics & Gynecology; PCP Nurse Practitioner Family; Visit Provider Obstetrics & Gynecology
PROC: (CPT 57260; principal; 2022-11-10 08:00)
PROC: 0JQC0ZZ Repair Pelvic Region Subcutaneous Tissue and Fascia, Open Approach (ICD-10-PCS; CPT 57240; 2022-11-10 08:00)
PROC: (CPT 57250; 2022-11-10 08:00)
PROC: (CPT 57288; 2022-11-10 08:00)
PROC: (CPT 57282; 2022-11-10 08:00)
PROC: 0TJB8ZZ Inspection of Bladder, Via Natural or Artificial Opening Endoscopic (ICD-10-PCS; CPT 52000; 2022-11-10 08:00)
DX: N81.3 Complete uterovaginal prolapse (principal); N84.0 Polyp of corpus uteri; G47.30 Sleep apnea, unspecified; Z87.891 Personal history of nicotine dependence; D26.1 Other benign neoplasm of corpus uteri
CPT/HCPCS: 57260; 57267; 57282; 57288; 58262; 36415; 51702; 51798; 80053; 81003; 81025; 84703; 85025; 85027; 86850; 86900; 88305; 96374; 96376; C1713; C1762; G0378; J0690; J1100; J1200; J1885; J2250; J2405; J2704; J2710; J3010; J3490; J7030; J7040; J7121

== ENCOUNTER → 2023-01-06 09:30 | Outpatient (BNVA) | payer OTHER, MEDICAID, SELFPAY | PROVIDERS: PCP Nurse Practitioner Family; Visit Provider Obstetrics & Gynecology | DX: Z48.816 Encounter for surgical aftercare following surgery on the genitourinary system (principal) | CPT/HCPCS: 84315; 87086 ==

== ENCOUNTER → 2023-01-25 15:15 | Outpatient (BNVA) | payer OTHER, MEDICAID, SELFPAY | PROVIDERS: PCP Nurse Practitioner Family; Visit Provider Dermatology | DX: L82.1 Other seborrheic keratosis (principal); L57.8 Other skin changes due to chronic exposure to nonionizing radiation; L81.4 Other melanin hyperpigmentation; D22.5 Melanocytic nevi of trunk | CPT/HCPCS: 99213 ==

== ENCOUNTER → 2023-11-22 08:42 | Outpatient (BNVA) | payer OTHER, MEDICAID, SELFPAY | PROVIDERS: PCP Nurse Practitioner Family; Visit Provider Nurse Practitioner Family | DX: L82.0 Inflamed seborrheic keratosis (principal); L57.8 Other skin changes due to chronic exposure to nonionizing radiation; L81.4 Other melanin hyperpigmentation; D22.5 Melanocytic nevi of trunk; L57.0 Actinic keratosis | CPT/HCPCS: 17000; 17110; 99213 ==

== ENCOUNTER → 2024-04-25 14:18 | Outpatient (BNVA) | payer OTHER, MEDICAID, SELFPAY | PROVIDERS: PCP Nurse Practitioner Family; Visit Provider Nurse Practitioner Family | DX: B02.9 Zoster without complications (principal) | CPT/HCPCS: 86787 ==

== ENCOUNTER → 2024-04-26 08:07 | Outpatient (BNVA) | payer OTHER, MEDICAID, SELFPAY | PROVIDERS: PCP Nurse Practitioner Family; Visit Provider Nurse Practitioner Family | DX: M17.12 Unilateral primary osteoarthritis, left knee (principal) | CPT/HCPCS: 73562 ==

== ENCOUNTER 2024-07-03 15:01 | Outpatient (CLI) | payer OTHER, SELFPAY ==
--- NOTE | 2024-07-03 15:15 | MR_ITS ---
WS: [id number] MRI LEFT KNEE HISTORY: Posterior LEFT knee pain. COMPARISON: Radiograph 04/26/2024 Anterior cruciate ligament: Intact. Posterior cruciate ligament: Intact. Medial collateral ligament: Intact. Posterior lateral corner structures: Intact. Medial menisci: Intact. Normal signal, size and shape. Lateral meniscus: Intact. Normal signal, size and shape. Extensor mechanism: Distal quadriceps tendon and patellar tendons are intact. Fluid and soft tissue: No joint effusion. Small amount of fluid in Jha's cyst. Osseous and articular structures: Patellofemoral compartment: Normal. Medial compartment: Mild narrowing of the medial compartment with superficial chondromalacia weightbe aring surface of the femoral condyle. No underlying marrow edema. Lateral compartment: Minimal narrowing with cartilage fissuring. No marrow edema. MR/MR knee LT wo con* [id number] IMPRESSION: 1. No meniscal tear or ACL tear. 2. No marrow edema or fracture. 3. Mild narrowing of the medial and lateral compartments from arthritis. 4. Focal superficial chondromalacia weightbearing surface medial femoral condy le.
== END 2024-07-03 15:02 | disposition home or self-care (01) ==
PROVIDERS: PCP Nurse Practitioner Family; Visit Provider Nurse Practitioner Family
DX: S89.92XA Unspecified injury of left lower leg, initial encounter (principal); G89.29 Other chronic pain; M17.12 Unilateral primary osteoarthritis, left knee; X58.XXXA Exposure to other specified factors, initial encounter; M71.22 Synovial cyst of popliteal space [Baker], left knee; M94.262 Chondromalacia, left knee
CPT/HCPCS: 73721

== ENCOUNTER → 2024-11-14 10:24 | Outpatient (BNVA) | payer OTHER, SELFPAY | PROVIDERS: PCP Nurse Practitioner Family; Visit Provider Nurse Practitioner Family | DX: I10 Essential (primary) hypertension (principal); E55.9 Vitamin D deficiency, unspecified | CPT/HCPCS: 80053; 80061; 82306 ==

== ENCOUNTER 2025-01-14 10:12 | Outpatient (CLI) | payer OTHER, SELFPAY | END 2025-01-14 10:13 | disposition home or self-care (01) | LOC: SLEEP 10:14 | PROVIDERS: PCP Nurse Practitioner Family; Visit Provider Internal Medicine Pulmonary Disease | DX: G47.33 Obstructive sleep apnea (adult) (pediatric) (principal); G47.36 Sleep related hypoventilation in conditions classified elsewhere | CPT/HCPCS: G0399 ==